=== PATIENT | female | born 1960 | race Hispanic/Latino ===

== ENCOUNTER → 2023-03-12 | Outpatient (CLI) | payer MEDICARE ==
[~2023-03-12] MED LIST: IOHEXOL 350 MG/ML 100ML INFUS..BTL IV ONE
== END | disposition home or self-care (01) ==
LOC: RAH 10:22
PROVIDERS: ATTEND Internal Medicine Cardiovascular Disease
DX: I25.10 Atherosclerotic heart disease of native coronary artery without angina pectoris (principal); R07.9 Chest pain, unspecified
CPT/HCPCS: 75574; Q9967

== ENCOUNTER → 2025-02-14 | Outpatient (CLI) | payer MEDICARE ==
--- NOTE | 2025-02-15 02:45 | HMCIMG ---
STUDY: X-RAY OF THE CERVICAL SPINE, 5 VIEWS HISTORY: Cervical radiculopathy; flexion and extension views. TECHNIQUE: Five views of the cervical spine, including flexion and extension projections, are submitted for interpretation. COMPARISON: None provided. FINDINGS: Bones and joints: Mild anterolisthesis of C3 on C4 and C4 on C5 is noted. There is multilevel cervical spondylosis with anterior osteophyte formation and mild reduction in intervertebral disc heights. Multilevel facet joint hypertrophy is present. No acute fracture or destructive osseous lesion is identified. Mild osteopenia is present. Alignment: Loss of the normal cervical lordosis. Soft tissues: Visualized prevertebral and paraspinal soft tissues are unremarkable. IMPRESSION: * Multilevel cervical spondylosis with mild anterolisthesis at C3???C4 and C4???C5, loss of cervical lordosis, and associated disc height loss and facet hypertrophy. * Mild osteopenia. * In the appropriate clinical context of cervical radiculopathy, MRI of the cervical spine may be useful for further evaluation of the spinal canal and neural foramina. /[place]
== END | disposition home or self-care (01) ==
LOC: RAH 11:56
PROVIDERS: ATTEND Physical Medicine & Rehabilitation
DX: M47.22 Other spondylosis with radiculopathy, cervical region (principal); Z01.419 Encounter for gynecological examination (general) (routine) without abnormal findings; G56.20 Lesion of ulnar nerve, unspecified upper limb; M85.88 Other specified disorders of bone density and structure, other site; M43.12 Spondylolisthesis, cervical region; M25.78 Osteophyte, vertebrae
CPT/HCPCS: 72050